=== PATIENT | male | born 1960 | race Caucasian/White ===

== ENCOUNTER → 2017-10-19 | Outpatient (CLI) | payer BC, SELFPAY | PROVIDERS: Visit Provider Nurse Practitioner Family | DX: R53.83 Other fatigue (principal) | CPT/HCPCS: 80053; 80061; 83036; 84439; 84443; 85025 ==

== ENCOUNTER → 2018-05-30 15:30 | Outpatient (REF) | payer BC, SELFPAY ==
[2018-05-30 17:00] LABS: Microscopic, Urine URINE MICROSCOPIC (MICROSCOPIC)
[2018-05-30 17:14] LABS: Appearance,Urine CLEAR (Clear); Bilirubin,Urine Negative (Negative); Blood, Urine Negative (Negative); Color,Urine YELLOW (Yellow); Glucose,Urine (UA) Negative (Negative); Ketones,Urine Negative (Negative); Leukocyte Esterase,Urine Negative (Negative); Nitrate,Urine Negative (Negative); Protein,Urine Negative (Negative); Specific Gravity, Urine 1.025 (1.005-1.030); Urobilinogen,Urine 0.2 EU/dl (0.2)
[2018-05-30 20:38] LABS: Bacteria,Urine Trace /lpf; Mucus,Urine 4+ /lpf; Squamous Epithelial Cell,Urine Occasional #/hpf (0-5)
[2018-06-01 18:05] LABS: PSA, Free 0.12 ng/mL; Prostate Specific Ag 0.4 ng/mL (0.0-4.0)
== END ==
LOC: LAB 15:30
PROVIDERS: Visit Provider Nurse Practitioner Family
DX: R39.198 Other difficulties with micturition (principal)
CPT/HCPCS: 81001; 84153; 84154; 87086

== ENCOUNTER 2020-07-07 10:55 | Emergency (ER) | payer BC, SELFPAY ==
--- NOTE | 2020-07-07 11:09 | [facility].EDGENADL ---
ED Disposition Clinical Impression: Bilateral lower extremity pain Venous stasis dermatitis Qualifiers: Laterality: bilateral Qualified Code(s): I87.2 - Venous insufficiency (chronic) (peripheral) Disposition: Home, Self-Care Condition on Discharge: Good Additional Instructions: You were seen on an emergency basis. It is very important that you follow up with your primary care provider and/or specialist as we discussed within 2 days. All labs and imaging were obtained and interpreted here to rule out life threatening emergencies, but your final results should be reviewed by your primary doctor at your follow up appointment. Please return to the emergency department if any of your symptoms worsen, or if they do not improve as we discussed. Referrals: Lino Aviles MD [Primary Care Provider] - - Critical Care Critical Care Time: No Attestation: On , the high probability of a clinically significant, sudden or life threatening deterioration of the following system(s) required my full and direct attention, intervention and personal management. The time I documented below is in addition to time spent performing reported procedures but includes the following listed in this critical care notation. Medical Decision Making - Medical Records Medical records reviewed: Yes: I reviewed the patient's medical records. - [place] Inquiry Pt receiving controlled substance: No Vital Signs: 07/07/20 11:18 07/07/20 12:17 Temperature 99.0 F Temperature Source Oral Pulse Rate [Right Radial] 68 64 Respiratory Rate 17 95 H Blood Pressure [Right Arm] 150/86 H 132/83 Blood Pressure Mean [Right Arm] 107 99 Blood Pressure Source [Right Arm] Automatic Cuff Blood Pressure Position [Right Arm] Sitting 02 Sat by Pulse Oximetry 97 94 L Oxygen Delivery Method Room Air Room Air - Lab Data Lab Results 07/07/20 11:25: WBC 6.5, RBC 4.68, Hgb 14.2, Hct 43.2, MCV 92.3, MCH 30.4, MCHC 32.9, RDW 13.9, Plt Count 242, MPV 9.2, Neut % (Auto) 53.4, Lymph % (Auto) 36.4, [place] % (Auto) 5.6, Eos % (Auto) 4.1, Baso % (Auto) 0.5, Neut # (Auto) 3.5, Lymph # (Auto) 2.4, Freeborn # (Auto) 0.4, Eos # (Auto) 0.3, Baso # (Auto) 0.0, ESR 14 07/07/20 11:25: D-Dimer 0.34 07/07/20 11:25: Sodium 139, Potassium 4.2, Chloride 99, Carbon Dioxide 32 H, Anion Gap 12.2, BUN 21 H, Creatinine 0.70, Estimated Creat Clear 123, Estimated GFR 114, Est GFR ( Amer) 138, Glucose 124 H, Calcium 9.5, Total Bilirubin 0.6, AST 33, ALT 32, Alkaline Phosphatase 90, Total Creatine Kinase 88, C-Reactive Protein 11.2 H, Total Protein 7.9, Albumin 4.3, Globulin 3.6 H, Albumin/Globulin Ratio 1.2 Result diagrams: 07/07/20 11:25 07/07/20 11:25 Orders (Tests/Meds): ED MEDICATIONS Discontinued Medications Generic Name Dose Route Start Last Admin Trade Name Freq PRN Reason Stop Dose Admin Cefepime HCl 1 gm/ Sodium 50 mls @ 100 mls/hr 07/07/20 11:54 07/07/20 12:15 Chloride IV 07/07/20 11:55 Not Given ONCE ONE Protocol Clindamycin Phosphate 900 mg/ 106 mls @ 100 mls/hr 07/07/20 11:55 07/07/20 12:15 Sodium Chloride IV 07/07/20 12:58 Not Given ONCE ONE Protocol Vancomycin HCl 2,000 mg/ 250 mls @ 125 mls/hr 07/07/20 12:15 07/07/20 12:15 Sodium Chloride IV 07/07/20 14:14 Not Given ONCE ONE Medical Decision Narrative: 60-year-old male presenting with leg pain, weakness and discoloration. Nontoxic, afebrile, hemodynamically stable, nonfocal, neuro intact, atraumatic. Well-perfused on exam. D-dimer within normal limits. This is not a DVT. No clinical evidence of arterial occlusion. No evidence of cellulitis. The rash is stasis dermatitis. White blood cell count, glucose and electrolytes are nonactionable. Patient does have an elevated CRP but this is nonspecific and I do not see any indication that this is a vasculitis or other inflammatory disorder affecting the legs per se as his CK is within normal limits and this is not a
[2020-07-07 11:18] VITALS: BP 150/86; PULSE 68; RESP 17; TEMP 37.2; O2SAT 97; BMI 35.9
[2020-07-07 11:40] LABS: Basophils % 0.5 % (0.1-2.0); Eosinophils # 0.3 K/mm3 (0.0-0.4); Eosinophils % 4.1 % (0.1-12.0); Hematocrit 43.2 % (42.0-52.0); Hemoglobin 14.2 g/dL (14.1-18.0); Lymphocytes # 2.4 K/mm3 (0.7-4.5); Lymphocytes % 36.4 % (10-50); Mean Corpuscular HGB Conc 32.9 g/dL (31.8-35.4); Mean Corpuscular Hemoglobin 30.4 pg (27.0-31.2); Mean Corpuscular Volume 92.3 fl (80-94); Mean Platelet Volume 9.2 fl (7.4-10.4); Monocytes # 0.4 K/mm3 (0.1-1.0); Monocytes % 5.6 % (1.7-9.3); Neutrophils # 3.5 K/mm3 (1.8-7.8); Neutrophils % 53.4 % (37.0-80.0); Platelet Count 242 K/mm3 (142-424); Red Blood Count 4.68 M/mm3 (4.60-6.20); Red Cell Distribution Width 13.9 % (11.5-17.5); White Blood Count 6.5 K/mm3 (4.8-10.8)
[2020-07-07 11:47] LABS: Alanine Aminotransferase 32 U/L (12-78); Albumin Level 4.3 g/dl (3.5-5.0); Albumin/Globulin Ratio 1.2 (1.1-1.8); Alkaline Phosphatase 90 U/L (38-126); Anion Gap 12.2 mEq/L (5-15); Aspartate Amino Transferase 33 U/L (17-59); Bilirubin,Total 0.6 mg/dl (0.2-1.3); Blood Urea Nitrogen 21 mg/dl (9-20); Calcium 9.5 mg/dl (8.4-10.2); Carbon Dioxide 32 mmol/L (22.0-30.0); Chloride 99 mmol/L (98-107); Creatine Kinase 88 U/L (55-170); Creatinine Clearance Estimated 123 mL/min (50-200); Estimated Glomerular Filt Rate 114 ml/min (>60); GFR (African American) 138 ML/MIN (>60); Globulin 3.6 g/dL (1.3-3.2); Glucose 124 mg/dl (74-100); Potassium 4.2 mmoL/L (3.5-5.1); Sodium 139 mmol/L (136-145); Total Protein,Serum 7.9 g/dl (6.3-8.2)
[2020-07-07 11:52] LABS: C-Reactive Protein 11.2 mg/L (0-4)
[2020-07-07 11:53] LABS: D-Dimer 0.34 ug/mL (0.15-8.0)
[2020-07-07 12:05] LABS: Erythrocyte Sedimentation Rate 14 mm/hr (0-20)
[2020-07-07 12:17] VITALS: BP 132/83; PULSE 64; RESP 18; O2SAT 94
[2020-07-07 12:56] VITALS: BP 127/48; PULSE 64; RESP 15; TEMP 37.2; O2SAT 97
== END 2020-07-07 13:16 | disposition home or self-care (01) ==
PROVIDERS: Emergency Provider Physician Assistant; PCP Emergency Medicine
DX: I87.2 Venous insufficiency (chronic) (peripheral) (principal); I10 Essential (primary) hypertension; Z79.899 Other long term (current) drug therapy
CPT/HCPCS: 80053; 82550; 85025; 85378; 85651; 86140; 99282

== ENCOUNTER → 2021-07-05 10:19 | Outpatient (CLI) | payer BC, SELFPAY ==
[2021-07-05 12:04] LABS: Prostate Specific Ag Screen 0.4 ng/ml (0.0-4.0)
== END ==
PROVIDERS: Visit Provider Urology
DX: Z12.5 Encounter for screening for malignant neoplasm of prostate (principal)
CPT/HCPCS: 36415; G0103

== ENCOUNTER → 2021-08-11 13:21 | Outpatient (CLI) | payer BC, SELFPAY ==
[2021-08-11 13:23] LABS: MANUAL DIFFERENTIAL MANUAL DIFFERENTIAL (MANUAL DIFF)
[2021-08-11 14:12] LABS: Basophils % 0.4 % (0.1-2.0); Eosinophils # 0.2 K/mm3 (0.0-0.4); Eosinophils % 1.9 % (0.1-12.0); Hematocrit 43.7 % (42.0-52.0); Lymphocytes # 2.4 K/mm3 (0.7-4.5); Lymphocytes % 28.7 % (10-50); Mean Corpuscular Volume 96.9 fl (80-94); Mean Platelet Volume 9.5 fl (7.4-10.4); Monocytes # 0.4 K/mm3 (0.1-1.0); Monocytes % 5.2 % (1.7-9.3); Neutrophils # 5.3 K/mm3 (1.8-7.8); Neutrophils % 63.8 % (37.0-80.0); Platelet Count 262 K/mm3 (142-424); Red Blood Count 4.51 M/mm3 (4.60-6.20); Red Cell Distribution Width 13.6 % (11.5-17.5); White Blood Count 8.2 K/mm3 (4.8-10.8)
[2021-08-11 14:22] LABS: Activated Partial Thrombo Time 26.7 seconds (22.8-30.6); Prothrombin Time 11.3 seconds (10.1-12.5)
[2021-08-11 14:39] LABS: Alanine Aminotransferase 28 U/L (12-78); Albumin Level 4.1 g/dl (3.5-5.0); Albumin/Globulin Ratio 1.3 (1.1-1.8); Alkaline Phosphatase 73 U/L (38-126); Anion Gap 10.4 mEq/L (5-15); Aspartate Amino Transferase 27 U/L (17-59); Bilirubin,Total 0.4 mg/dl (0.2-1.3); Blood Urea Nitrogen 17 mg/dl (9-20); Calcium 9.4 mg/dl (8.4-10.2); Carbon Dioxide 31 mmol/L (22.0-30.0); Chloride 104 mmol/L (98-107); Estimated Glomerular Filt Rate 168 ml/min (>60); GFR (African American) 203 ML/MIN (>60); Globulin 3.2 g/dL (1.3-3.2); Glucose 125 mg/dl (74-100); Potassium 4.4 mmoL/L (3.5-5.1); Sodium 141 mmol/L (136-145); Total Protein,Serum 7.3 g/dl (6.3-8.2)
[2021-08-11 16:34] LABS: Eosinophils % 2 % (0-3); Lymphocytes % 28 % (10-50); Monocytes % 4 % (2-9); Neutrophils % 66 % (42-76); Platelet Estimate Normal; Total Cells Counted 100
== END ==
PROVIDERS: Visit Provider Otolaryngology
DX: R04.0 Epistaxis (principal)
CPT/HCPCS: 36415; 80053; 85007; 85014; 85018; 85048; 85049; 85610; 85730

== ENCOUNTER → 2021-08-15 16:03 | Outpatient (CLI) | payer BC, SELFPAY ==
[2021-08-18 10:12] LABS: Factor V Activity 94 % (70-150)
== END ==
PROVIDERS: Visit Provider Otolaryngology
DX: R04.0 Epistaxis (principal)
CPT/HCPCS: 36415; 85220

== ENCOUNTER → 2021-09-19 08:11 | Outpatient (CLI) | payer BC, SELFPAY ==
--- NOTE | 2021-09-19 08:11 | CT_ITS ---
PROCEDURE: CT SINUS WO CON CLINICAL HISTORY: left maxillary sinus pain COMPARISON: No exams were available for comparison TECHNIQUE: Axial images obtained with sagittal and coronal reformats. All CT scans at the facility use one or more dose reduction, viz: automated exposure control, ma/kV adjustment per patient size (including targeted exams where dose is matched to indication, i.e. head), or iterative reconstruction technique. FINDINGS: There is mild mucosal thickening involving the frontal ethmoid area of the sinus centrally. Small retention cyst is present in the floor the left maxillary sinus at 7 mm. There is moderate to severe leftward nasal septal deviation with a septal spur projecting toward the left causing severe narrowing of the left nasal canal at the region of the spur. There is a prominent right dallin bullosa and a small left dallin bullosa. The ostiomeatal complexes are patent. Minimal mucosal thickening noted along the right OMC. Minimal mucosal thickening left maxillary sinus. No sinus air-fluid level. Small focal area of sclerosis noted in the right frontal ethmoid region of the sinuses at 3 mm and may be due to small osteoma. Unremarkable orbits. Scattered small nodes are present in the neck. IMPRESSION: 1. Mild paranasal sinus disease. 2. Moderate to severe leftward nasal septal deviation with some prominent septal spur causing narrowing of the left nasal canal, and bilateral dallin bullosa right larger than left. 3. Other nonacute findings as described above. Dictated by: Chencho Araujo MD 09/20/2021 08:49 Chencho Araujo MD in [facility] 09/20/2021 08:49
== END ==
PROVIDERS: PCP Emergency Medicine; Visit Provider Otolaryngology
DX: R04.0 Epistaxis (principal)
CPT/HCPCS: 70486

== ENCOUNTER → 2022-02-10 19:38 | Outpatient (CLI) | payer BC, SELFPAY ==
[2022-02-10 14:50] LABS: Alanine Aminotransferase 31 U/L (12-78); Albumin Level 4.4 g/dl (3.5-5.0); Albumin/Globulin Ratio 1.4 (1.1-1.8); Alkaline Phosphatase 86 U/L (38-126); Anion Gap 14.5 mEq/L (5-15); Aspartate Amino Transferase 27 U/L (17-59); Bilirubin,Total 0.6 mg/dl (0.2-1.3); Blood Urea Nitrogen 25 mg/dl (9-20); Calcium 9.5 mg/dl (8.4-10.2); Carbon Dioxide 28 mmol/L (22.0-30.0); Chloride 102 mmol/L (98-107); Chol/HDL Ratio 4.1 (1-3.5); Cholesterol 175 mg/dl (140-200); Estimated Glomerular Filt Rate 136 ml/min (>60); GFR (African American) 165 ML/MIN (>60); Globulin 3.2 g/dL (1.3-3.2); Glucose 133 mg/dl (74-100); HDL Cholesterol 43 mg/dl (40-60); Potassium 4.5 mmoL/L (3.5-5.1); Sodium 140 mmol/L (136-145); Total Protein,Serum 7.6 g/dl (6.3-8.2); Triglycerides 194 mg/dl (30-150); VLDL Cholesterol 39 mg/dL (0-40)
[2022-02-10 15:00] LABS: Basophils % 0.5 % (0.1-2.0); Eosinophils # 0.1 K/mm3 (0.0-0.4); Eosinophils % 1.7 % (0.1-12.0); Hematocrit 48.2 % (42.0-52.0); Hemoglobin 15.1 g/dL (14.1-18.0); Lymphocytes # 1.6 K/mm3 (0.7-4.5); Lymphocytes % 25.8 % (10-50); Mean Corpuscular HGB Conc 31.4 g/dL (31.8-35.4); Mean Corpuscular Hemoglobin 30.1 pg (27.0-31.2); Mean Corpuscular Volume 95.9 fl (80-94); Mean Platelet Volume 11.1 fl (7.4-10.4); Monocytes # 0.4 K/mm3 (0.1-1.0); Monocytes % 5.8 % (1.7-9.3); Neutrophils # 4.1 K/mm3 (1.8-7.8); Neutrophils % 66.2 % (37.0-80.0); Platelet Count 260 K/mm3 (142-424); Red Blood Count 5.03 M/mm3 (4.60-6.20); Red Cell Distribution Width 14.3 % (11.5-17.5); White Blood Count 6.2 K/mm3 (4.8-10.8)
[2022-02-10 15:01] LABS: Direct LDL Cholesterol 91.17 mg/dL (100-129)
[2022-02-10 15:07] LABS: Free T4 (Free Thyroxine) 0.74 ng/dl (0.78-2.19)
[2022-02-10 15:21] LABS: Thyroid Stimulating Hormone 2.87 uIU/mL (0.465-4.68)
[2022-02-10 17:05] LABS: Hemoglobin A1C 6.1 % (4.0-6.0)
== END ==
PROVIDERS: Physician Assistant; PCP Emergency Medicine; Visit Provider Emergency Medicine
DX: M79.604 Pain in right leg (principal); M79.605 Pain in left leg; R73.9 Hyperglycemia, unspecified
CPT/HCPCS: 80053; 80061; 83036; 84439; 84443; 85025

== ENCOUNTER → 2022-02-20 08:24 | Outpatient (CLI) | payer BC, SELFPAY ==
--- NOTE | 2022-02-20 08:25 | CA_ITS ---
APPROVED REPORT EXAM: Comprehensive 2D, Doppler, and color-flow Echocardiogram Granite Sandblaster Apprentice: Mayelin Buckley CRT Ht: 5 ft 10 in Wt: 255lbs BSA: 2.31 BP: 140/88 mmHg Indications: Murmur 2D Dimensions LVOT 2.14 cm (M/F) 1.5-2.5 LA Volume 47.70 mL LA Volume Index 20.60 mL/m2 (M/F) 16-34 M-Mode Dimensions RVDd 3.99 cm (0.9-2.6) LA Diam 3.67 cm (1.9-4.0) LVDd 5.09 cm (3.5-5.7) Ao Diam 4.52 cm (2.0-3.7) LVDs 2.93 cm (3.5-5.7) IVSd 1.75 cm (0.6-1.1) PWd 0.99 cm (0.6-1.1) EF (Teich) 73.20% FS 42.40% EDV (Teich) 123.20 mL TAPSE 3.86 (<1.7) ESV (Teich) 33.00 mL LV Diastology E Decel Time 257.00 (160-240 msec) E/A Ratio 0.83 MED E' 4.50 (< 7 cm/sec) MED A' 17.10 cm/s E'/MED E' Ratio 13.33 (>14) LAT E' 5.90 (<10 cm/sec) LAT A' 11.90 cm/s E/LAT E' Ratio 10.17 (>14) Aortic Valve AO Peak GR. 7.40 mmHg Mitral Valve MV E Max Rj. 60.00 (40-130 cm/s) MV A Velocity 73.00 (40-130 cm/s) E/A Ratio 0.83 MV Decel. Time 257.00 (160-240 ms) MV PHT 75.00 ms Tricuspid Valve TR P. Velocity 275.00 cm/s RAP Estimate 10.00 mmHg RVSP 40.30 mmHg Left Ventricle Left atrium is mildly enlarged, left ventricle is normal size, mild concentric left ventricle hypertrophy, estimated ejection fraction 55% with no regional wall motion abnormality, Doppler evidence of impaired LV relaxation seen, tissue Doppler is inconclusive. Right Ventricle Right atrium and right ventricle moderately enlarged with normal contractility. Atria Intra-atrial septum is poorly visualized, repeat study with agitated saline contrast study is recommended to exclude presence of intracardiac shunt. Aortic Valve Aortic valve is minimally thickened and fibrosed, there is no aortic stenosis or aortic insufficiency. Mitral Valve Mitral valve grossly normal, there is trace mitral regurgitation. Tricuspid Valve Tricuspid valve is grossly normal, there is trace tricuspid regurgitation, tricuspid regurgitation jet velocity is inadequate for calculation of the right ventricular systolic pressure. Pulmonic Valve Pulmonic valve is poorly visualized. Great Vessels Aortic root is normal size. Inferior vena cava is poorly visualized. Pericardium No significant pericardial effusion noted. Conclusion 1. Biatrial enlargement, normal left ventricular size, estimated ejection fraction 55% with no regional wall motion abnormality, Doppler evidence of impaired LV relaxation seen. 2. Moderately enlarged right ventricle with normal contractility. 3. Intra-atrial septum is poorly visualized, repeat study with saline contrast study is recommended to exclude presence of intracardiac shunt. 4. Trace mitral and tricuspid regurgitation noted. 5. No significant pericardial effusion noted. Electronically signed by : Bryn Barragan MD 02/20/2022 21:09:35
== END ==
PROVIDERS: PCP Emergency Medicine; Visit Provider Emergency Medicine
DX: R01.1 Cardiac murmur, unspecified (principal)
CPT/HCPCS: 93306

== ENCOUNTER → 2022-03-06 09:28 | Outpatient (CLI) | payer BC, SELFPAY ==
--- NOTE | 2022-03-06 09:30 | CA_ITS ---
APPROVED REPORT EXAM: Comprehensive 2D, Doppler, and color-flow Echocardiogram Lamp Assembler: Mayelin Buckley CRT Ht: 5 ft 10 in Wt: 255lbs BSA: 2.31 BP: 140/88 mmHg Indications: Murmur R01.1 Echo Enhancing Agent Indication: Rule out Shunt Agent(s) / Amount(s) Used: Agitated Saline 15 cc Comments: Bubble study appears positive. Conclusion 1. Agitated saline contrast study was obtained. 2. Agitated saline contrast study did not identify intracardiac shunt. Electronically signed by : Bryn Barragan MD 03/06/2022 10:12:54
== END ==
PROVIDERS: PCP Emergency Medicine; Visit Provider Emergency Medicine
DX: R01.1 Cardiac murmur, unspecified (principal); R93.1 Abnormal findings on diagnostic imaging of heart and coronary circulation
CPT/HCPCS: 93308

== ENCOUNTER → 2022-05-04 14:32 | Outpatient (CLI) | payer BC, SELFPAY ==
[2022-05-04 13:15] LABS: Adenovirus,PCR Not Detected (NotDetected); Bordetella Pertussis Not Detected (NotDetected); Chlamydophila Pneumoniae, PCR Not Detected (NotDetected); Coronavirus 229E Not Detected (NotDetected); Coronavirus NL63 Not Detected (NotDetected); Coronavirus OC43 Not Detected (NotDetected); Coronovirus HKU1,PCR Not Detected (NotDetected); Human Metapneumovirus Not Detected (NotDetected); Influenza A, PCR Not Detected (NotDetected); Influenza AH1, 2009 Not Detected (NotDetected); Influenza AH1, PCR Not Detected (NotDetected); Influenza AH3,PCR Not Detected (NotDetected); Influenza B, PCR Not Detected (NotDetected); Mycoplasma Pneumoniae, PCR Not Detected (NotDetected); Parainfluenza 1, PCR Not Detected (NotDetected); Parainfluenza 2, PCR Not Detected (NotDetected); Parainfluenza 3, PCR Not Detected (NotDetected); Parainfluenza 4, PCR Not Detected (NotDetected); Respiratory Syncytial Virus Not Detected (NotDetected); Rhinovirus/Enterovirus Not Detected (NotDetected)
[2022-05-04 15:49] LABS: Coronavirus 19, PCR Detected (NotDetected)
== END ==
PROVIDERS: Visit Provider Family Medicine
DX: U07.1 COVID-19 (principal); B97.21 SARS-associated coronavirus as the cause of diseases classified elsewhere
CPT/HCPCS: 87581; 87632; 87798; C9803; U0003; U0005

== ENCOUNTER → 2022-07-06 10:36 | Outpatient (CLI) | payer BC, SELFPAY ==
[2022-07-06 13:03] LABS: Prostate Specific Ag Screen 0.6 ng/ml (0.0-4.0)
== END ==
PROVIDERS: PCP Emergency Medicine; Visit Provider Urology
DX: Z12.5 Encounter for screening for malignant neoplasm of prostate (principal)
CPT/HCPCS: 36415; G0103

== ENCOUNTER → 2023-02-27 08:47 | Outpatient (POV) | payer BC, SELFPAY | PROVIDERS: Visit Provider Dermatology | DX: Z00.00 Encounter for general adult medical examination without abnormal findings (principal) ==

== ENCOUNTER → 2023-06-19 08:33 | Outpatient (POV) | payer MEDICARE, SELFPAY | PROVIDERS: Visit Provider Dermatology | DX: Z00.00 Encounter for general adult medical examination without abnormal findings (principal) ==

== ENCOUNTER 2024-01-25 18:00 | Outpatient (CLI) | payer MEDICARE, MEDICAID, SELFPAY ==
[2024-01-25 18:10] LABS: Basophils # 0.1 K/mm3 (0-0.2); Basophils % 1.3 % (0.1-2.0); Eosinophils # 0.2 K/mm3 (0.0-0.4); Eosinophils % 1.7 % (0.1-12.0); Hemoglobin 15.4 g/dL (14.1-18.0); Lymphocytes % 21.3 % (10-50); Mean Corpuscular HGB Conc 30.7 g/dL (31.8-35.4); Mean Corpuscular Hemoglobin 30.3 pg (27.0-31.2); Mean Corpuscular Volume 98.5 fl (80-94); Mean Platelet Volume 11.4 fl (7.4-10.4); Monocytes # 0.5 K/mm3 (0.1-1.0); Monocytes % 5.7 % (1.7-9.3); Neutrophils # 6.5 K/mm3 (1.8-7.8); Neutrophils % 69.9 % (37.0-80.0); Platelet Count 235 K/mm3 (142-424); Red Blood Count 5.07 M/mm3 (4.60-6.20); Red Cell Distribution Width 13.8 % (11.5-17.5); White Blood Count 9.3 K/mm3 (4.8-10.8)
[2024-01-25 18:43] LABS: Alanine Aminotransferase 25 U/L (12-78); Albumin Level 4.3 g/dl (3.5-5.0); Albumin/Globulin Ratio 1.3 (1.1-1.8); Alkaline Phosphatase 90 U/L (38-126); Anion Gap 10.8 mEq/L (5-15); Aspartate Amino Transferase 29 U/L (17-59); Bilirubin,Total 0.7 mg/dl (0.2-1.3); Blood Urea Nitrogen 20 mg/dl (9-20); Calcium 9.6 mg/dl (8.4-10.2); Carbon Dioxide 30 mmol/L (22.0-30.0); Chloride 104 mmol/L (98-107); Chol/HDL Ratio 5.9 (1-3.5); Cholesterol 172 mg/dl (140-200); Estimated Glomerular Filt Rate 113 ml/min (>60); GFR (African American) 137 ML/MIN (>60); Globulin 3.4 g/dL (1.3-3.2); Glucose 87 mg/dl (74-100); HDL Cholesterol 29 mg/dl (40-60); Potassium 4.8 mmoL/L (3.5-5.1); Sodium 140 mmol/L (136-145); Total Protein,Serum 7.7 g/dl (6.3-8.2); Triglycerides 175 mg/dl (30-150); VLDL Cholesterol 35 mg/dL (0-40)
[2024-01-25 18:54] LABS: Direct LDL Cholesterol 106.94 mg/dL (100-129)
[2024-01-25 19:12] LABS: Hemoglobin A1C 6.3 % (4.0-6.0)
[2024-01-25 19:15] LABS: Prostate Specific Ag Screen 0.5 ng/ml (0.0-4.0); Thyroid Stimulating Hormone 3.08 uIU/mL (0.465-4.68)
== END 2024-01-25 23:59 ==
LOC: LAB.DROPOF 18:00
PROVIDERS: PCP Student in an Organized Health Care Education/Training Program; Visit Provider Student in an Organized Health Care Education/Training Program
DX: I10 Essential (primary) hypertension (principal); R73.9 Hyperglycemia, unspecified; R53.83 Other fatigue; Z12.5 Encounter for screening for malignant neoplasm of prostate
CPT/HCPCS: 80053; 80061; 83036; 84443; 85025; G0103

== ENCOUNTER 2024-04-09 15:08 | Outpatient (CLI) | payer MEDICARE, MEDICAID, SELFPAY ==
[2024-04-09 15:59] LABS: Basophils % 0.3 % (0.1-2.0); Eosinophils # 0.2 K/mm3 (0.0-0.4); Eosinophils % 1.5 % (0.1-12.0); Hematocrit 46.7 % (42.0-52.0); Hemoglobin 15.2 g/dL (14.1-18.0); Lymphocytes % 20.4 % (10-50); Mean Corpuscular HGB Conc 32.5 g/dL (31.8-35.4); Mean Corpuscular Volume 92.4 fl (80-94); Mean Platelet Volume 9.7 fl (7.4-10.4); Monocytes # 0.5 K/mm3 (0.1-1.0); Monocytes % 5.2 % (1.7-9.3); Neutrophils # 7.2 K/mm3 (1.8-7.8); Neutrophils % 72.5 % (37.0-80.0); Platelet Count 262 K/mm3 (142-424); Red Blood Count 5.05 M/mm3 (4.60-6.20); Red Cell Distribution Width 14.4 % (11.5-17.5)
[2024-04-09 16:19] LABS: Chloride 102 mmol/L (98-107); Potassium 4.5 mmoL/L (3.5-5.1); Sodium 139 mmol/L (136-145)
[2024-04-09 16:21] LABS: Bilirubin,Unconjugated 0.6 mg/dL (0.0-1.1); Blood Urea Nitrogen 18 mg/dl (9-20); Estimated Glomerular Filt Rate 135 ml/min (>60); GFR (African American) 163 ML/MIN (>60)
[2024-04-09 16:22] LABS: Alanine Aminotransferase 25 U/L (12-78); Albumin Level 4.5 g/dl (3.5-5.0); Alkaline Phosphatase 64 U/L (38-126); Anion Gap 13.5 mEq/L (5-15); Aspartate Amino Transferase 28 U/L (17-59); Bilirubin,Indirect 0.6 mg/dL (0.0-0.9); Bilirubin,Total 0.6 mg/dl (0.2-1.3); Calcium 9.8 mg/dl (8.4-10.2); Carbon Dioxide 28 mmol/L (22.0-30.0); Chol/HDL Ratio 4.3 (1-3.5); Cholesterol 156 mg/dl (140-200); Glucose 99 mg/dl (74-100); HDL Cholesterol 36 mg/dl (40-60); Magnesium 1.9 mg/dl (1.6-2.3); Total Protein,Serum 7.7 g/dl (6.3-8.2); Triglycerides 122 mg/dl (30-150); VLDL Cholesterol 24 mg/dL (0-40)
[2024-04-09 16:33] LABS: Direct LDL Cholesterol 93.16 mg/dL (100-129)
[2024-04-09 16:39] LABS: Free T4 (Free Thyroxine) 0.85 ng/dl (0.78-2.19)
[2024-04-09 16:53] LABS: Thyroid Stimulating Hormone 2.46 uIU/mL (0.465-4.68)
== END 2024-04-09 23:59 | disposition home or self-care (01) ==
LOC: LAB 15:09
PROVIDERS: PCP Student in an Organized Health Care Education/Training Program; Visit Provider Internal Medicine
DX: I10 Essential (primary) hypertension (principal); R94.31 Abnormal electrocardiogram [ECG] [EKG]
CPT/HCPCS: 36415; 80048; 80061; 80076; 83735; 84439; 84443; 85025

== ENCOUNTER 2024-05-05 06:37 | Outpatient (CLI) | payer MEDICARE, MEDICAID, SELFPAY ==
--- NOTE | 2024-05-05 06:38 | CA_ITS ---
APPROVED REPORT EXAM: Comprehensive 2D, Doppler, and color-flow Echocardiogram News Gathering Technician: Mayelin Buckley CRT Ht: 5 ft 10 in Wt: 258lbs BSA: 2.33 BP: 119/70 mmHg Indications: Abnormal ECG, Chest Pain, Shortness of Breath, Obesity, Dyspnea, Hypertension/HDD Echo Enhancing Agent Indication: Rule out Shunt Agent(s) / Amount(s) Used: Agitated Saline 5 cc Comments: B/S ORDERED M-Mode Dimensions RVDd 3.15 cm (0.9-2.6) LA Diam 4.13 cm (1.9-4.0) LVDd 5.20 cm (3.5-5.7) LVDs 3.88 cm (3.5-5.7) IVSd 0.81 cm (0.6-1.1) PWd 0.89 cm (0.6-1.1) EF (Teich) 49.70% FS 25.40% EDV (Teich) 129.50 mL ESV (Teich) 65.10 mL LV Diastology E Decel Time 237 (160-240 msec) E/A Ratio 0.70 Mitral Valve MV E Max Rj. 46.0 (40-130 cm/s) MV A Velocity 66.0 (40-130 cm/s) E/A Ratio 0.70 MV PHT 69.0 ms Left Ventricle The left ventricle is normal size. The left ventricular systolic function is normal. The left ventricular ejection fraction is within the normal range. There is increased LV wall thickness. There is normal LV segmental wall motion. The left ventricular diastolic function is normal. LVEF is 55%. Right Ventricle Right ventricle is mildly to moderately dilated. Right ventricle is mildly hypokinetic. Atria The left atrium is mildly dilated. The right atrium is mildly dilated. There is no Doppler evidence of interatrial shunt. Agitated saline administration demonstrates no evidence of interatrial shunt. Aortic Valve The aortic valve is mildly thickened. Trace aortic regurgitation. There is no aortic valvular stenosis. Mitral Valve The mitral valve leaflets are mildly thickened. Trace mitral regurgitation. No evidence of mitral valve stenosis. Tricuspid Valve The tricuspid valve leaflets are thin and pliable. Trace tricuspid regurgitation. There is insufficient TR jet to estimate RVSP. Pulmonic Valve The pulmonary valve is normal in structure. Trace pulmonic regurgitation. Great Vessels The aortic root is normal in size. The ascending aorta is not well-visualized. IVC is normal in size and collapses >50% with inspiration. Pericardium There is no pericardial effusion. Other Information Study Quality: Technically Difficult Conclusion Technically difficult study due to poor acoustic windows. Normal LV systolic function. Mild to moderate RV dilation with mild reduction in RV function. Mild biatrial dilation. No significant valvular stenosis or regurgitation. Agitated saline administration (bubble study) demonstrates no evidence of interatrial shunt. Electronically signed by : Irish Anderson MD 05/07/2024 13:18:02
--- NOTE | 2024-05-05 06:40 | NM_ITS ---
APPROVED REPORT Exam: Nuclear Stress Test Indication: Chest pain, HTN Patient Location: Outpatient Stress Tech: Catina Urban [place] Tech:Judith Modi, ARRT, RT (R)(N) Ht: 5 ft 10 in Wt: 250 lbs HR: 70 bpm BP: 120/76 mmHg BSA: 2.29 m2 TID: 1.24 BMI: 35.8 History: Chest pain, HTN Procedure: Patient received 0.4 mg of intravenous Lexiscan, resting heart rate 70 bpm, resting blood pressure 120/76 mmHg, with Lexiscan maximum heart rate achieved was 95 bpm which is % of the maximum predicted heart rate and blood pressure was 123/64 mmHg. With Lexiscan, patient denied any complaint of chest pain. Cardiac Stress and Resting SPECT Images: Cardiac Stress and Resting SPECT images were obtained using technetium 99m Myoview 30.0 mCi stress and 10.05 mCi at rest. Resting and stress imaging in supine and prone positions demonstrate no evidence of fixed or reversible perfusion defects. There is increase in transient ischemic dilatation ratio (TID 1.24), suggestive of possible multivessel disease or balanced ischemia. Gated imaging demonstrates normal global and regional LV systolic function. LVEF is calculated at 55%. Conclusion: No evidence of fixed or reversible perfusion defects. There is increase in transient ischemic dilatation ratio (TID 1.24), suggestive of possible multivessel disease or balanced ischemia. Gated imaging demonstrates normal global and regional LV systolic function. LVEF is calculated at 55%. In the setting of no prior known coronary disease, normal LVEF, and presence of TID, further evaluation with noninvasive testing (i.e. CCTA) is suggested prior to proceeding with invasive coronary angiography to rule out multivessel disease. Electronically signed by : Irish Anderson MD 05/06/2024 12:44:45
[2024-05-05] MEDS: REGADENOSON 0.4MG/5ML SYRINGE 0.4 MG IV (08:56)
[2024-05-05] MEDS: ISOTOPE MYOVIEW (PER STUDY) 1 DOSE IV (08:56)
[2024-05-05] MEDS: SODIUM CHLORIDE 0.9% 10ML SYR (RAD ONLY) 10 ML IV ×2 (08:56)
--- NOTE | 2024-05-05 10:00 | CA_ITS ---
APPROVED REPORT Exam: Pharmacologic Technologist: Catina Urban Ht: 5 ft 10 in Wt: 258 lbs BSA: 2.33 m2 HR: 66 bpm BP: 120/76 mmHg Rhythm: NSR Indications: Abnormal ekg Medical History Medications: Lisinopril,,,,, Vitamin C,,,,, Montelukast,,,,, OxYbutynin,,,,, CetIRIZINE,,,,, Stress Test Details Test: LEXISCAN HR Resting HR: 70 bpm Max Heart Rate (APMHR): 154 bpm Max HR Achieved: 95 bpm Target HR (85% APMHR): 131 bpm % of APMHR: 62 Recovery HR: 81 bpm BP Resting BP: 120.0/76.0 mmHg Max BP: 123.0/64.0 mmHg Recovery BP: 120.0/74.0 mmHg ECG Resting ECG: Sinus rhythm, PVC Stress ECG: No significant ST changes Arrhythmia: PVCs Clinical Exercise duration: 04:06 min Highest Stage Achieved: Stress ECG Conclusion Symptoms: Mild shortness of air. Arrhythmias/Ectopy:Rare PVC ST-T Changes: No significant ST changes Conclusion: Unremarkable Lexiscan stress test. Myoview images reported separately. Test Summary REST . . . . . . . Resting REST 03:28 . . 70 . 120/ 76 . . Stage 1 . . . . . . . Myoview Injected Stage 1 01:00 . . 94 . . . . Stage 2 01:00 . . 90 . 109/ 67 . . Stage 3 01:00 . . 79 . 113/ 68 . . Stage 4 01:00 . . 80 . 121/ 66 . . Stage 4 01:06 . . 77 . 121/ 66 . Stop exercise at 04:06 RECOVERY 01:00 . . 80 . 123/ 64 . . RECOVERY 02:00 . . 84 . 121/ 70 . . RECOVERY 03:00 . . 77 . 121/ 70 . . RECOVERY 03:16 . . 83 . 120/ 74 . . Electronically signed by : Irish Anderson MD 05/06/2024 12:42:29
== END 2024-05-05 23:59 | disposition home or self-care (01) ==
LOC: RAD 06:38
PROVIDERS: PCP Student in an Organized Health Care Education/Training Program; Visit Provider Internal Medicine
DX: R94.31 Abnormal electrocardiogram [ECG] [EKG] (principal); I10 Essential (primary) hypertension
CPT/HCPCS: 78452; 93017; 93018; 93306; A9502; J2785

== ENCOUNTER 2025-04-29 11:56 | Outpatient (CLI) | payer MEDICARE, MEDICAID, SELFPAY ==
[2025-04-29 21:11] LABS: Hematocrit 45.7 % (42.0-52.0); Hemoglobin 14.1 g/dL (14.1-18.0); Immature Granulocytes % 0.4 %; Mean Corpuscular HGB Conc 30.9 g/dL (31.8-35.4); Mean Corpuscular Hemoglobin 28.4 pg (27.0-31.2); Mean Corpuscular Volume 92.1 fl (80-94); Nucleated Red Blood Cells % 0 %; Platelet Count 259 K/mm3 (142-424); Red Blood Count 4.96 M/mm3 (4.60-6.20); Red Cell Distribution Width-SD 49.6 fL; White Blood Count 6.8 K/mm3 (4.8-10.8)
[2025-04-29 21:29] LABS: Hemoglobin A1C 7.5 % (4.0-6.0)
[2025-04-29 21:57] LABS: Alanine Aminotransferase 21 U/L (12-78); Albumin Level 4.3 g/dl (3.5-5.0); Albumin/Globulin Ratio 1.4 (1.1-1.8); Alkaline Phosphatase 81 U/L (38-126); Anion Gap 13.7 mEq/L (5-15); Aspartate Amino Transferase 20 U/L (17-59); Bilirubin,Total 0.5 mg/dl (0.2-1.3); Blood Urea Nitrogen 19 mg/dl (9-20); Calcium 9.3 mg/dl (8.4-10.2); Carbon Dioxide 28 mmol/L (22.0-30.0); Chloride 99 mmol/L (98-107); Cholesterol 138 mg/dl (140-200); Creatinine,Serum 0.60 mg/dl (0.66-1.25); Estimated Glomerular Filt Rate 134 ml/min (>60); GFR (African American) 163 ML/MIN (>60); Globulin 3.0 g/dL (1.3-3.2); Glucose 85 mg/dl (74-100); HDL Cholesterol 31 mg/dl (40-60); Potassium 4.7 mmoL/L (3.5-5.1); Sodium 136 mmol/L (136-145); Total Protein,Serum 7.3 g/dl (6.3-8.2); Triglycerides 81 mg/dl (30-150)
[2025-04-29 22:20] LABS: 25-OH Vitamin D, Total 33.7 ng/mL (30-100)
[2025-04-29 22:27] LABS: Thyroid Stimulating Hormone 2.21 uIU/mL (0.465-4.68)
== END 2025-04-29 23:59 | disposition home or self-care (01) ==
LOC: LAB.DROPOF 05-04 11:57
PROVIDERS: PCP Family Medicine; Visit Provider Family Medicine
DX: E55.9 Vitamin D deficiency, unspecified (principal); I10 Essential (primary) hypertension; E66.9 Obesity, unspecified; R73.03 Prediabetes; Z12.5 Encounter for screening for malignant neoplasm of prostate
CPT/HCPCS: 80053; 80061; 82306; 83036; 84443; 85025; G0103

== ENCOUNTER 2025-07-31 09:02 | Outpatient (CLI) | payer MEDICARE, MEDICAID, SELFPAY ==
[2025-07-31 14:49] LABS: Coronavirus 19, PCR Not Detected (NotDetected); Influenza A, PCR Not Detected (NotDetected); Influenza B, PCR Not Detected (NotDetected)
== END 2025-07-31 23:59 ==
LOC: LAB.DROPOF 08-03 09:02
PROVIDERS: PCP Student in an Organized Health Care Education/Training Program; Visit Provider Student in an Organized Health Care Education/Training Program
DX: J06.9 Acute upper respiratory infection, unspecified (principal)
CPT/HCPCS: 87636

== ENCOUNTER 2025-09-23 11:16 | Outpatient (CLI) | payer MEDICARE, MEDICAID, SELFPAY ==
--- NOTE | 2025-09-23 11:30 | CA_ITS ---
FINAL REPORT CLINICAL HISTORY: PAIN RIGHT THIGH,NKI FINDINGS: DUPLEX VENOUS SONOGRAPHY OF THE RIGHT LOWER EXTREMITY Multiple transverse and longitudinal scans were performed of the femoropopliteal deep venous system, with augmentation and compression maneuvers. FINDINGS: Normal phasic flow was noted in the visualized deep venous system. No intraluminal increased echogenicity is noted to suggest thrombus. There is normal compression and augmentation of the venous structures. No abnormal venous collaterals are seen. IMPRESSION: No evidence of deep venous thrombosis of the right lower extremity. Reviewed, Interpreted and Dictated by Ebonie Garcia MD Transcribed by Shaylee Garg Authenticated and [facility]
== END 2025-09-23 23:59 | disposition home or self-care (01) ==
LOC: RT 11:16
PROVIDERS: PCP Student in an Organized Health Care Education/Training Program; Visit Provider Family Medicine
DX: M79.604 Pain in right leg (principal)
CPT/HCPCS: 93971

== ENCOUNTER 2025-10-01 10:40 | Outpatient (CLI) | payer MEDICARE, MEDICAID, SELFPAY ==
--- NOTE | 2025-10-01 11:00 | US_ITS ---
FINAL REPORT CLINICAL HISTORY: CLAUDICATION RLE, FINDINGS: ANKLE-BRACHIAL PRESSURE INDICES Pressure indices are as follows: RIGHT LOWER EXTREMITY: Ankle-brachial pressure index: 1.11 Comments: Normal LEFT LOWER EXTREMITY: Ankle-brachial pressure index: 1.22 Comments: Normal IMPRESSION: No evidence of significant obstructive peripheral vascular disease of the lower extremities Reviewed, Interpreted and Dictated by Sander Jhaveri MD Transcribed by Shaylee Garg Authenticated and [facility]
== END 2025-10-01 23:59 | disposition home or self-care (01) ==
LOC: RT 10:40
PROVIDERS: PCP Student in an Organized Health Care Education/Training Program; Visit Provider Family Medicine
DX: I73.9 Peripheral vascular disease, unspecified (principal); M79.604 Pain in right leg; R29.898 Other symptoms and signs involving the musculoskeletal system
CPT/HCPCS: 93923

== ENCOUNTER 2025-10-14 12:32 | Outpatient (CLI) | payer MEDICARE, MEDICAID, SELFPAY ==
[2025-10-14 15:06] LABS: Alanine Aminotransferase 21 U/L (12-78); Albumin Level 4.5 g/dl (3.5-5.0); Albumin/Globulin Ratio 1.5 (1.1-1.8); Alkaline Phosphatase 92 U/L (38-126); Anion Gap 12.2 mEq/L (5-15); Aspartate Amino Transferase 26 U/L (17-59); Bilirubin,Total 0.7 mg/dl (0.2-1.3); Blood Urea Nitrogen 20 mg/dl (9-20); Calcium 9.2 mg/dl (8.4-10.2); Carbon Dioxide 28 mmol/L (22.0-30.0); Chloride 101 mmol/L (98-107); Creatinine,Serum 0.70 mg/dl (0.66-1.25); Estimated Glomerular Filt Rate 112 ml/min (>60); GFR (African American) 136 ML/MIN (>60); Globulin 3.1 g/dL (1.3-3.2); Glucose 98 mg/dl (74-100); Potassium 4.2 mmoL/L (3.5-5.1); Sodium 137 mmol/L (136-145); Total Protein,Serum 7.6 g/dl (6.3-8.2)
[2025-10-14 16:32] LABS: Hemoglobin A1C 5.9 % (4.0-6.0)
== END 2025-10-14 23:59 | disposition home or self-care (01) ==
LOC: LAB.DROPOF 20:08
PROVIDERS: PCP Nurse Practitioner Family; Visit Provider Family Medicine
DX: R73.03 Prediabetes (principal)
CPT/HCPCS: 80053; 82043; 82570; 83036